=== PATIENT | female | born 1965 | race Caucasian/White ===

== ENCOUNTER 2024-04-26 11:16 | Observation (INO) | payer SELFPAY ==
[2024-04-26] VITALS (33 sets, daily range): BP systolic 81–161; BP diastolic 29–99; PULSE 59–83; RESP 11–27; TEMP 36.9; O2SAT 96–99
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
[2024-04-26] MEDS: ACETAMINOPHEN 1,000 MG/100 ML BTL 400 MG IVPB (11:40)
[2024-04-26] MEDS: Normal Saline 1,000 ML 1000 ML IV (11:40)
[2024-04-26 12:00] LABS: Abs Immature Grans 0.07 10^3/uL (0.0-0.06); Absolute Basophil Count 0.03 10^3/uL (0.0-0.2); Absolute Eosinophil Count 0.08 10^3/uL (0.0-0.7); Absolute Lymphocyte Count 1.07 10^3/uL (1.2-3.4); Absolute Monocyte Count 0.49 10^3/uL (0.1-0.8); Basophils % 0.4 %; Eosinophils % 1.1 %; HCT 42.2 % (36.0-46.0); HGB 14.1 g/dL (11.2-15.7); Lymphocytes % 14.8 %; MCH 31.7 pg (27.0-33.0); MCHC 33.4 % (32.0-36.0); MCV 95 fL (80-95); MPV 10.2 fL (8.0-11.0); Monocytes % 6.8 %; Neutrophils % 75.9 %; Platelet Count 199 10^3/uL (130-400); RBC 4.45 10^6/uL (3.93-5.22); RDW 12.2 % (11.7-14.6); RDW-SD 42.8 fL; WBC 7.24 10^3/uL (4.4-10.8)
[2024-04-26 12:14] LABS: PTT Activated 22.1 sec (23.6-32.8); Prothrombin Time 10.4 sec (9.1-11.1)
[2024-04-26 12:17] LABS: ALT 146 U/L (14-59); AST 119 U/L (15-37); Albumin 3.6 g/dL (3.4-5.0); Alkaline Phosphatase 76 U/L (46-116); Anion Gap 12.1 mmol/L (3-11); BUN 19 mg/dL (7-18); Bilirubin, Total 0.61 mg/dL (0.2-1.0); CO2 24.9 mmol/L (21.0-32.0); Chloride 105 mmol/L (98-107); Estimated GFR 65.71 (mL/min/1.73m2); Glucose 133 mg/dL (74-106); Sodium 142 mmol/L (136-145); Total Protein 6.9 g/dL (6.4-8.2)
[2024-04-26] MEDS: Normal Saline - Diluent 50 ML VIAL IJ (12:18)
[2024-04-26] MEDS: Omnipaque 350 MG/ML 100 ML BTL IJ (12:20)
[2024-04-26] MEDS: Ketorolac 15 MG/ML VIAL IVP ×2 (15:03→22:09)
--- NOTE | 2024-04-26 15:34 | NUR.NOTE ---
Nursing Note: Attempted to get pt out of bed. Pt was not even to sit on the edge of the bed due to the pain. Informed
[2024-04-26] MEDS: fentaNYL 100 MCG/2 ML VIAL 24 MCG IVP (15:50)
--- NOTE | 2024-04-26 16:04 | NUR.NOTE ---
Nursing Note: Ordered dinner tray for patient.
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
[2024-04-26] MEDS: oxyCODONE 5 MG TAB PO (19:27)
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
[2024-04-26] MEDS: Normal Saline Flush 10 ML SYR (22:09)
[2024-04-27] MEDS: oxyCODONE 5 MG TAB PO ×3 (01:48→12:40)
[2024-04-27] MEDS: Ketorolac 15 MG/ML VIAL IVP ×2 (04:09→09:18)
[2024-04-27 07:52] VITALS: BP 122/90; PULSE 70; RESP 15; TEMP 37; O2SAT 98
[2024-04-27 07:58] LABS: ALT 121 U/L (14-59); AST 63 U/L (15-37); Albumin 3.2 g/dL (3.4-5.0); Alkaline Phosphatase 54 U/L (46-116); Anion Gap 7.2 mmol/L (3-11); BUN 13 mg/dL (7-18); CO2 26.8 mmol/L (21.0-32.0); CREATININE 0.8 mg/dL (0.55-1.02); Chloride 108 mmol/L (98-107); Estimated GFR 85.89 (mL/min/1.73m2); Glucose 108 mg/dL (74-106); Potassium 3.5 mmol/L (3.5-5.1); Sodium 142 mmol/L (136-145); Total Protein 6.2 g/dL (6.4-8.2)
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
[2024-04-27] MEDS: Venlafaxine 75 MG CAPCR PO (08:09)
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
--- NOTE | 2024-04-27 10:53 | NUR.NOTE ---
Nursing Note: Reviewed DC instructions with pt per her request. [place] [facility] [place]. Will review again before leaving. Stressed the importance of f/u with local Ortho as [facility] can not set up anything in [place] for her. She understands. Discussed alternating OTC meds with oxycodone for pain control and that narcotics can be constipating. Discussed moving slowly and carefully so not to displace her fxs until she sees a local Ortho.
== END 2024-04-27 13:49 | disposition home or self-care (01) ==
LOC: ER 15:45 → MS 16:59
PROVIDERS: Admitting Provider Family Medicine; Emergency Provider Emergency Medicine; Visit Provider Family Medicine
DX: S32.501A Unspecified fracture of right pubis, initial encounter for closed fracture (principal); M25.531 Pain in right wrist; S50.811A Abrasion of right forearm, initial encounter; V19.3XXA Pedal cyclist (driver) (passenger) injured in unspecified nontraffic accident, initial encounter; S32.19XA Other fracture of sacrum, initial encounter for closed fracture; N95.1 Menopausal and female climacteric states; R23.2 Flushing; C50.911 Malignant neoplasm of unspecified site of right female breast; Z79.899 Other long term (current) drug therapy; S00.511A Abrasion of lip, initial encounter
CPT/HCPCS: 00123; 36415; 73552; 74177; 80053; 86850; 86900; 86901; 90715; 96361; 96365; 96375; 96376; 97161; 99285; 71260; 73090; 85025; 85610; 85730; 99222; 99238; G0378; J0131; J1885; J3010; J3490